=== PATIENT | female | born 1995 | race Caucasian/White ===

== ENCOUNTER 2018-12-24 07:30 | Inpatient (IN) | payer BC ==
--- NOTE | 2018-12-24 12:57 | HP ---
DATE OF ADMISSION: 12/24/2018 ADMISSION DIAGNOSES: 1. 38 and 6/7 weeks' gestational age. 2. History of previous section x2. 3. Active labor with desire for repeat section. HISTORY OF PRESENT ILLNESS: The patient is a 23-year-old 4, para 2-0-1-2 white female who has an ILDEFONSO of 01/01/2019 placing her at 38 and 6/7 weeks' gestational age. She was seen in [facility] [place], [place], for visit at which time she was noted to be in labor, octaviano every 4 to 5 minutes. They were moderate in intensity. The patient is admitted to the hospital for repeat section which was scheduled for after 39 weeks previously. The procedure, risks, benefits, alternatives of care are discussed in detail with the patient. She appears to understand and wishes to proceed. She has signed a consent and orders have been given to her. OBSTETRIC AND GYNECOLOGIC HISTORY: 4, para 2-0-1-2. The patient's ILDEFONSO is 01/01/2019 as based upon first ultrasound done at 12 and 6/7 weeks and supported by a second ultrasound done on 08/22/2018. Her previous obstetric history includes a the followin. The patient had a delivery on 06/23/2013 at 39 weeks' gestational age after 24 hours of labor, 7 pounds 8 ounces, primary section in [place], [place], done for failure to progress and abnormal position. Child's name is Chau. 2. Second delivered on 03/18/2015 at 6 weeks' gestation, miscarriage. 3. Delivery 05/07/2017 at 39 weeks' gestational age, 8 pounds 2 ounces, [place], [place], child's name is Jose Roberto. The patient had menarche at age 14. Cycles every 28 days. Last menstrual period was fairly certain. Not using any control at time of conception. OBSTETRIC AND GYNECOLOGIC COURSE: The patient's first visit was on 06/25/2018 at 12 weeks' gestation. She was seen on a regular basis. Her weight gain was from 161.8 to 179.8 pounds for an 18 pounds gain. Her fundal height growth was appropriate. Baby is in a vertex presentation. Her vital signs remained stable throughout the course. The patient had an abnormal glucose tolerance test 1 hour, but a normal 3-hour glucose tolerance test. She has a complicated left ovarian cyst seen at her 20-week ultrasound. She has had a history of bacterial vaginosis which was treated. She is desiring repeat section. She plans to breastfeed. Her Tdap immunization was done on 10/29/2018. LABORATORY TESTING IN : Shows blood to be O positive with a negative antibody screen. Her first hemoglobin was 13.1 g/dL. Platelets were 267,000. She is rubella immune. RPR is nonreactive. Urinalysis showed Gardnerella vaginalis, which was treated. Her hepatitis B surface antigen and HIV assays were both negative as were her chlamydia and gonorrhea tests. Her second trimester hemoglobin was normal. Her diabetes screen was 131, which was mildly elevated. Her 3-hour glucose was as follows: Fasting blood sugar 95. One-hour glucose 168. 2-hour glucose 110. 3-hour glucose was 63. Group B strep screen done on 12/03/2018 was negative. ALLERGIES: None other than nickel which causes itching and rash. CURRENT MEDICATIONS: 1. Valacyclovir 500 mg 2 tablets at the onset of oral herpes lesions, repeat every 12 hours. 2. vitamins 1 daily. PAST MEDICAL HISTORY: 1. Miscarriage x1. 2. Right oophorectomy for ovarian cyst. PAST SURGICAL HISTORY: 1. x2 as above. 2. Right oophorectomy secondary to cyst. FAMILY HISTORY: Negative for bleeding, blood clotting, anesthesia or asthma disorders. No disorders noted. SOCIAL HISTORY: The patient is . is Vasyl. She lives in [place], [place]. She does not use any significant amounts of alcohol, drugs, or tobacco. She is a [id number] mom. REVIEW OF SYSTEMS: HEAD, EARS, EYES, NOSE, AND THROAT: Negative. LUNGS: Without shortness of breath or infectious symptoms. CARDIOVASCULAR: Without chest pain, exercise intolerance. BREASTS: Show only changes associated with . GASTROINTESTINAL: Unremarkable. GENITOURINARY: Changes associated with with fundal height increased due to . MUSCULOSKELETAL/EXTREMITIES: Mild edema noted on occasion. NEUROLOGICAL: Negative. PHYSICAL EXAMINATION: GENERAL: The patient is well-developed, well-nourished, pleasant female in minimal distress secondary to early labor. Reporting contractions every 5 minutes or so. VITAL SIGNS: Her weight is 179.8 pounds with first weight of 161.8 pounds. Blood pressure is 129/90. Her heart rate is 145. SKIN: Warm, dry, without lesions. HEENT, NECK AND BACK: Within normal limits. LUNGS: Clear with good breath sounds in all lung root. CARDIOVASCULAR: Shows regular rate and rhythm without murmurs. BREASTS: Deferred at this time having been done at first visit found to be normal. ABDOMEN: Consistent with term with fundal height of 38.5 cm. Baby in vertex presentation. GENITAL: Shows cervix to be 1 cm, +1, 20% effaced, soft, posterior position, and -3 station. Baby in vertex presentation. EXTREMITIES: Show trace edema. Otherwise unremarkable. ASSESSMENT: 1. 38 and 6/7 week intrauterine , history of previous x2 with desire for repeat section, now in early active labor. The patient is admitted for an unscheduled repeat section. The procedure, risks, benefits, alternatives of care including allowing natural labor to proceed all discussed with the patient. She appears to understand and would like to proceed with repeat section. 2. Risk factors for the include history of previous x2. Also history of right oophorectomy. Also has a left ovarian cyst diagnosed on her 20-week ultrasound. PLAN: 1. Admit for repeat section. The procedure, risks, benefits were discussed with the patient. She has signed a consent. 2. Deep venous thrombosis prophylaxis with SCDs. 3. Infection prophylaxis with Ancef 2 g IV preop. 4. The patient has been given a Tdap immunization. She is Rh positive. 5. The patient plans to breastfeed. 6. Routine antibiotic prophylaxis. The patient is group B strep negative. MMODAL /[id number]
[2018-12-24] MEDS ORDERED: Lactated Ringers 1,000 ML ONE (13:09)
[2018-12-24] MEDS ORDERED: Ondansetron 4 MG/2 ML SDV IVPUSH PRN ×2 (13:11→15:27)
[2018-12-24] MEDS ORDERED: Sodium Chloride 0.9% 10 ML Syringe FLUSH PRN (13:11)
[2018-12-24] MEDS ORDERED: Nalbuphine 10 MG/1 ML Vial IVPUSH PRN (13:11)
[2018-12-24] MEDS ORDERED: Metoclopramide 10 MG/2 ML SDV IVPUSH ONE (13:11)
[2018-12-24] MEDS ORDERED: ceFAZolin 2 GM in Premix Bag 1 BAG IV ONE (13:11)
[2018-12-24] MEDS ORDERED: Citric Acid/Sodium Citrate Solution 30 ML Cup PO ONE (13:11)
[2018-12-24] MEDS ORDERED: Lactated Ringers 1,000 ML IV SCH (13:15)
[2018-12-24] MEDS ORDERED: Oxytocin/Lactated Ringers 10 UNIT/1,000 ML BAG IV SCH (13:15)
[2018-12-24] MEDS ORDERED: Oxytocin 10 Units/1 ML SDV ONE (14:26)
[2018-12-24] MEDS ORDERED: Morphine PF 10 MG/10 ML SDV ONE (14:26)
[2018-12-24] MEDS ORDERED: Ondansetron 4 MG/2 ML SDV ONE (14:26)
[2018-12-24] MEDS ORDERED: ceFAZolin 1 GM Vial ONE (14:26)
[2018-12-24] MEDS ORDERED: Ketorolac 30 MG/ML SDV ONE (14:26)
[2018-12-24] MEDS ORDERED: Lactated Ringers 2,000 ML ONE (14:26)
--- NOTE | 2018-12-24 14:51 | PCM.PREANE ---
Preanesthetic Assessment - Procedure Proposed Procedure: repeat c sectio - Anesthesia/Transfusion/Family Hx Anesthesia History: Prior Anesthesia Without Reaction Family History of Anesthesia Reaction: No Transfusion History: No Prior Transfusion(s) - Review of Systems General: No Symptoms Pulmonary: No Symptoms Cardiovascular: No Symptoms Gastrointestinal: No Symptoms Neurological: No Symptoms Other: Reports: None - Physical Assessment NPO Status Date: 12/24/18 NPO Status Time: 11:45 (oj- small cup) Vital Signs: Last Vital Signs Temp 97.9 F 12/24/18 13:50 Pulse 96 12/24/18 13:50 Resp 14 12/24/18 13:50 BP 133/91 H 12/24/18 13:50 Pulse Ox 100 12/24/18 13:50 Height: 5 ft 4 in Weight: 81.193 kg ASA Class: 2 Mental Status: Alert & Oriented x3 Airway Class: Mallampati = 1 Dentition: Reports: Normal Dentition Thyro-Mental Finger Breadths: 3 Mouth Opening Finger Breadths: 3 ROM/Head Extension: Full Lungs: Clear to Auscultation, Normal Respiratory Effort Cardiovascular: Regular Rate, Regular Rhythm - Blood Blood Available: No - Acknowledgements Anesthesia Type Planned: Spinal Pt an Appropriate Candidate for the Planned Anesthesia: Yes Alternatives and Risks of Anesthesia Discussed w Pt/Guardian: Yes Pt/Guardian Understands and Agrees with Anesthesia Plan: Yes PreAnesthesia Questionnaire Cardiovascular History: Reports: None Respiratory History: Reports: None Gastrointestinal History: Reports: None : 4 (38 6 weeks) Para: 2 - Past Surgical History Female Surgical History: Reports: Section, Other (See Below) (ovary removed) - History Comment History Comment: q day - SUBSTANCE USE Smoking Status *Q: Never Smoker Tobacco Use Within Last Twelve Months: No Second Hand Smoke Exposure: No Days Per Week of Alcohol Use: 0 Recreational Drug Use History: No - CURRENT (IN HOUSE) MEDS Current Meds: Current Medications Lactated Ringer's (Ringers, Lactated) 1,000 mls @ 125 mls/hr IV ASDIRECTED [facility] Last Admin: 12/24/18 14:17 Dose: 125 mls/hr Oxytocin/Lactated Ringer's (Pitocin In Lr 10 Units/1,000 Ml) 10 unit in 1,000 mls @ 100 mls/hr IV ASDIRECTED [facility] Nalbuphine HCl (Nubain) 10 mg IVPUSH Q2H PRN PRN Reason: Pain Ondansetron HCl (Zofran) 4 mg IVPUSH Q4H PRN PRN Reason: Nausea/Vomiting Sodium Chloride (Saline Flush) 10 ml FLUSH ASDIRECTED PRN PRN Reason: Keep Vein Open Discontinued Medications Cefazolin Sodium (Ancef) Confirm Administered Dose 2 gm .ROUTE .STK-MED ONE Stop: 12/24/18 14:27 Citric Acid/Sodium Citrate (Bicitra Solution) 30 ml PO ONETIME ONE Stop: 12/24/18 13:12 Last Admin: 12/24/18 14:18 Dose: 30 ml Lactated Ringer's (Ringers, Lactated) Confirm Administered Dose 1,000 mls @ as directed .ROUTE .STK-MED ONE Stop: 12/24/18 13:10 Cefazolin Sodium/Dextrose 2 gm (/ Premix) 50 mls @ 100 mls/hr IV ONETIME ONE Stop: 12/24/18 13:40 Lactated Ringer's (Ringers, Lactated) Confirm Administered Dose 2,000 mls @ as directed .ROUTE .STK-MED ONE Stop: 12/24/18 14:27 Ketorolac Tromethamine (Toradol) Confirm Administered Dose 30 mg .ROUTE .STK- MED ONE Stop: 12/24/18 14:27 Metoclopramide HCl (Reglan) 10 mg IVPUSH ONETIME ONE Stop: 12/24/18 13:12 Last Admin: 12/24/18 14:17 Dose: 10 mg Morphine Sulfate (Duramorph Pf) Confirm Administered Dose 10 mg .ROUTE .STK-MED ONE Stop: 12/24/18 14:27 Ondansetron HCl (Zofran) Confirm Administered Dose 4 mg .ROUTE .STK-MED ONE Stop: 12/24/18 14:27 Oxytocin (Pitocin) Confirm Administered Dose 10 unit .ROUTE .STK-MED ONE Stop: 12/24/18 14:27
[2018-12-24] MEDS ORDERED: Bupivacaine 0.5% 30 ML SDV ONE (15:14)
[2018-12-24] MEDS ORDERED: fentaNYL 100 MCG/2 ML SDV IVPUSH PRN (15:27)
[2018-12-24] MEDS ORDERED: diphenhydrAMINE 50 MG/ML SDV IVPUSH PRN ×2 (15:27→18:05)
[2018-12-24] MEDS ORDERED: Phenylephrine/Normal Saline 100 MCG/ML 10 ML Syringe ONE (15:55)
--- NOTE | 2018-12-24 16:34 | PCM.POSTAN ---
POST ANESTHESIA ASSESSMENT - MENTAL STATUS Mental Status: Alert, Oriented - VITAL SIGNS Vital Signs: Last Vital Signs Temp 97.9 F 12/24/18 16:17 Pulse 99 12/24/18 15:01 Resp 14 12/24/18 16:25 BP 108/57 L 12/24/18 16:17 Pulse Ox 98 12/24/18 16:25 - RESPIRATORY Respiratory Status: Respiratory Rate WNL, Airway Patent, O2 Saturation Stable, Supplemental Oxygen - CARDIOVASCULAR CV Status: Pulse Rate WNL, Blood Pressure Stable - GASTROINTESTINAL GI Status: No Symptoms - PAIN Pain Score: 0 - POST OP HYDRATION Hydration Status: Adequate & Stable
--- NOTE | 2018-12-24 17:24 | PCM.SN ---
- Free Text/Narrative Note: - General Post-Op/Procedure Note Date of Surgery/Procedure: 12/24/18 Operative Procedure(s): Repeat lower uterine segment transverse section through Pfannenstiel skin incision Findings: Uterus was gravid with full-term infant in a vertex presentation. Amniotic fluid was clear. Lower uterine segment was very thin at no more than 2 mm. Right ovary is surgically absent. Left ovary was enlarged to approximately 8 cm in largest dimension by 4 cm x 3 cm. It had smooth surface and appeared benign in nature. Baby weighed 7 lbs. 11 oz. (3480 g) and was born at 1536 hrs. on 12/24/2018. scores were 8 and 9. Pre Op Diagnosis: 38-6/7 week intrauterine , active labor, history of previous section 2 with desire for repeat section Post-Op Diagnosis: Same with delivery of female weighing 7 lbs. 11 oz. ( 3480 g) born at 1536 hrs. on 12/24/2018. scores were 8 and 9. Anesthesia Technique: Spinal Other Anesthesia Type: Arcane 0.5%20 mL total Primary Surgeon: Waldo Ham Secondary Surgeon: Kelvin Llanes Anesthesia Provider: Elham Gill Cement Crusher Operator: Gareth March Reason Cement Crusher Operator Was Necessary: Assistance, retraction, patient safety, quality of care. Fluid Replacement, Intraop: 3,200 Output, Urine Amount: 100 EBL in mLs: 600 Drain/Tube Comments:: Indwelling bladder catheter Condition: Good Free Text/Narrative:: Surgery duration: 38 minutes Procedure: The patient is appropriately consented. Patient was transferred to the room and placed in a sitting position. Spinal anesthesia was administered. After confirmation of adequate anesthesia patient was placed in a supine position with a wedge under her right side to facilitate left lateral positioning. The patient was prepped and draped in usual fashion after Nolasco catheter was already placed . The anesthetic was checked and found to be adequate. 20 mL of Marcaine 0.5% was injected locally in the Pfannenstiel incision site. The Pfannenstiel skin incision was then made and carried down through skin, subcutaneous and fascial layers. The fascia was then undermined superiorly and inferiorly to allow for adequate operating room. The recti muscles midline and preperitoneal fat was bluntly dissected. Peritoneal cavity was entered longitudinally. The vesicouterine peritoneum was then incised transversely and bladder flap was developed. Myometrium was incised transversely to the level of the amniotic sac. Is found very thin at no more than 2 mm of thickness. This incision was extended bilaterally in a blunt fashion. The amniotic sac was then ruptured resulting in clear amniotic fluid. A hand is placed in the low uterine segment and the baby's head was brought forth through the incision. The baby was completely delivered using fundal pressure in a routine fashion. The nose and mouth were bulb suctioned. Baby's cord was clamped x2 cut and baby was handed off to attending boat designer Dr cleveland. Placenta was expressed after cord blood was obtained. Uterus was then exteriorized to allow for easier closure. The cervix was assessed and found to be dilated adequately to allow egress of blood. The uterus was closed in 2 layers. The first layer a running locked suture of 0 Monocryl, the second layer a running locked vertical mattress suture of 0 Monocryl. Hemostasis confirmed at this time. The left ovary was found to be enlarged as described above. Because of its benign appearance and patient having only the left ovary remaining decision was made to monitor and reevaluate after previous use of with ultrasound. Sponge instrument needle counts are correct. The uterus was returned to the abdominal cavity and lateral gutters were cleared of blood. Once again sponge needle counts are correct. The anterior abdominal wall was closed with a #1 PDS suture from angle to angle. The subcutaneous area was found to be free of any bleeders. interrupted sutures of 3-0 Monocryl were used to reapproximate the subcutaneous layer.Skin was closed with a running subcuticular stitch of 3-0 Monocryl in a vertical mattress suture fashion using a Jose needle. Prineo mesh/glue was then applied to further approximate the incision. It should be noted that patient received 2 g of Ancef preoperatively for infection prophylaxis and had Pitocin infused after delivery of the placenta to facilitate uterine contraction. She also had sequential compression stockings in place for DVT prophylaxis. Patient was discharged from the operating room in satisfactory condition.
[2018-12-24] MEDS ORDERED: Ondansetron 4 MG/2 ML SDV IV PRN (18:05)
[2018-12-24] MEDS ORDERED: Acetaminophen/oxyCODONE 325-5 MG Tab PO PRN (18:05)
[2018-12-24] MEDS ORDERED: Ibuprofen 800 MG Tab PO SCH (18:05)
[2018-12-24] MEDS ORDERED: Naloxone 0.4 MG/ML SDV IVPUSH PRN (18:05)
[2018-12-24] MEDS ORDERED: Dextrose 5%-Lactated Ringers 1,000 ML IV SCH (18:05)
[2018-12-24] MEDS ORDERED: Docusate Sodium 100 MG Cap PO PRN (18:05)
[2018-12-24] MEDS ORDERED: ePHEDrine 50 MG/ML SDV IVPUSH PRN (18:05)
[2018-12-24] MEDS: Simethicone 80 MG Tab.Chew PO SCH (20:31)
[2018-12-24] MEDS: Ibuprofen 800 MG Tab PO SCH (21:01)
[2018-12-25] MEDS: Ibuprofen 800 MG Tab PO SCH ×3 (06:06→21:56)
[2018-12-25] MEDS: Simethicone 80 MG Tab.Chew PO SCH ×4 (10:19→21:56)
[2018-12-25] MEDS: Prenatal Multivitamin with Calcium/Folic Acid/Iron Tab PO SCH (10:20)
[2018-12-25] MEDS: Acetaminophen 325 MG Tab PO PRN ×2 (12:00→19:38)
[2018-12-25] MEDS ORDERED: Acetaminophen/oxyCODONE 325-5 MG Tab PO PRN (12:37)
[2018-12-25] MEDS: valACYclovir 1,000 MG Tab PO SCH (17:09)
[2018-12-26] MEDS: Ibuprofen 800 MG Tab PO SCH (05:55)
--- NOTE | 2018-12-26 06:02 | PCM.DCSUM1 ---
Discharge Summary - Hospital Course Free Text/Narrative:: Pippa is a 23-year-old 3 para 3003 white female who was scheduled for repeat section on 12/26/2018 but went into labor on 12/24/2018 and underwent repeat section at that time. She had a lower uterine segment transverse section through Pfannenstiel skin incision under a spinal anesthesia. She delivered a viable, 7 lbs. 11 oz. (3480 g) female at 1536 hrs. on 12/24/2018. scores were 8 and 9. findings at the time of : Uterus was gravid with full-term in a vertex presentation. Amniotic fluid was clear. Lower uterine segment was very thin at no more than 2 mm. Right ovary is surgically absent. Left ovary was enlarged to approximately 8 cm in largest dimension by 4 cm x 3 cm. It had smooth surface and appeared benign in nature. patient has done very well. She is nursing without problems. Incision appears to be healing well. It is intact, dry.Prineo mesh is in place. This will be removed at 2 weeks . Desiring discharge home. She has minimal lochia. She is voiding well. She is ambulating without concerns. Condition: Good Diagnosis: Stroke: No - Discharge Data Discharge Date: 12/26/18 Discharge Disposition: Home, Self-Care 01 Condition: Good - Referral to Home Health Primary Care Physician: Chen Ayala [employer] - Patient Instructions Diet: Regular Diet as Tolerated (Nursing diet with increase in calcium and calories as recommended) Activity: As Tolerated (No intercourse or tampons until seen back. No lifting greater than 15 pounds or driving a car 5-7 days.) Driving: Do Not Drive Showering/Bathing: May Shower Wound/Incision Care: Keep Operative Site/Wound Site Clean and Dry Notify Provider of: Fever, Increased Pain, Swelling and Redness, Nausea and/or Vomiting - Discharge Plan Home Medications: Home Meds Acetaminophen/oxyCODONE [Percocet 325-5 MG] 1 tab PO Q4H PRN tablet 12/26/18 [ Rx] Ibuprofen [Motrin] 800 mg PO Q8H tablet 12/26/18 [Rx] Vit with Ca/FA/Iron [ Plus Iron] 1 each PO DAILY tablet [Rx] valACYclovir [Valtrex] 1,000 mg PO DAILY tablet 12/26/18 [Rx] - Discharge Summary/Plan Comment DC Time >30 min.: No Discharge Summary/Plan Comment: Discharge instructions: 1. Discharge home 2. Diet, activity and follow-up discussed with patient. Recommend nursing diet with increased calories and calcium. 3. Precautions given concern increased pain, bleeding, temperature, signs/ symptoms of DVT/PE. 4. Medications per home medication was printed, discussed with and given to the patient. 5. Return to clinic-Dr. Ham[facility] in 2 weeks. Diagnosis: Term -admitted in active labor?history of 2 with desire for repeat section -delivered via repeat section Condition: Good - Patient Data Vitals - Most Recent: Last Vital Signs Temp 36.7 C 12/26/18 03:23 Pulse 74 12/26/18 03:23 Resp 15 12/26/18 03:23 BP 97/73 12/26/18 03:23 Pulse Ox 96 12/26/18 03:23 Weight - Most Recent: 81.193 kg I&O - Last 24 hours: Intake & Output 12/25/18 12/25/18 12/26/18 14:59 22:59 06:59 Intake Total 240 320 Output Total 2000 Balance -1760 320 Lab Results - Last 24 hrs: Laboratory Results - last 24 hr 12/25/18 Range/Units 05:44 WBC 9.74 (3.98-10.04) K/mm3 RBC 3.74 L (3.98-5.22) M/mm3 Hgb 11.0 L (11.2-15.7) gm/dl Hct 33.3 L (34.1-44.9) % MCV 89.0 (79.4-94.8) fl MCH 29.4 (25.6-32.2) pg MCHC 33.0 (32.2-35.5) g/dl RDW Std Deviation 46.0 (36.4-46.3) fL Plt Count 166 L (182-369) K/mm3 MPV 10.1 (9.4-12.3) fl Neut % (Auto) 72.6 H (34.0-71.1) % Lymph % (Auto) 19.6 (19.3-51.7) % Wayne % (Auto) 6.8 (4.7-12.5) % Eos % (Auto) 0.5 L (0.7-5.8) Baso % (Auto) 0.1 (0.1-1.2) % Neut # (Auto) 7.07 H (1.56-6.13) K/mm3 Lymph # (Auto) 1.91 (1.18-3.74) K/mm3 Wayne # (Auto) 0.66 H (0.24-0.36) K/mm3 Eos # (Auto) 0.05 (0.04-0.36) K/mm3 Baso # (Auto) 0.01 (0.01-0.08) K/mm3 Med Orders - Current: Current Medications Acetaminophen (Tylenol) 650 mg PO Q6H PRN PRN Reason: Pain Last Admin: 12/25/18 19:38 Dose: 650 mg Diphenhydramine HCl (Benadryl) 25 mg IVPUSH Q6H PRN PRN Reason: Itching or Nausea Docusate Sodium (Colace) 100 mg PO Q12H PRN PRN Reason: Constipation Last Admin: 12/25/18 21:56 Dose: 100 mg Ephedrine Sulfate (Ephedrine Sulfate) 5 mg IVPUSH SEECOMMENT PRN PRN Reason: Other Ibuprofen (Motrin) 800 mg PO Q8H [facility] Last Admin: 12/26/18 05:55 Dose: 800 mg Naloxone HCl (Narcan) 0.1 mg IVPUSH SEECOMMENT PRN PRN Reason: Respiratory Depression Ondansetron HCl (Zofran) 4 mg IV Q4H PRN PRN Reason: Nausea/Vomiting Oxycodone/Acetaminophen (Percocet 325-5 Mg) 2 tab PO Q4H PRN PRN Reason: Pain (moderate 4-6) Last Admin: 12/25/18 23:27 Dose: 2 tab Oxycodone/Acetaminophen (Percocet 325-5 Mg) 1 tab PO Q4H PRN PRN Reason: Pain Last Admin: 12/25/18 12:43 Dose: 1 tab Prenat Multivit/[place]/Iron/Folic Ac ( Plus Iron) 1 each PO DAILY [facility] Last Admin: 12/25/18 10:20 Dose: 1 each Simethicone (Simethicone) 160 mg PO QID [facility] Last Admin: 12/25/18 21:56 Dose: 160 mg Valacyclovir HCl (Valtrex) 1,000 mg PO DAILY [facility] Last Admin: 12/25/18 17:09 Dose: 1,000 mg Discontinued Medications Bupivacaine HCl (Marcaine 0.5%) Confirm Administered Dose 30 ml .ROUTE .K-MED ONE Stop: 12/24/18 15:15 Last Admin: 12/24/18 15:33 Dose: 20 ml Cefazolin Sodium (Ancef) Confirm Administered Dose 2 gm .ROUTE .[facility] ONE Stop: 12/24/18 14:27 Citric Acid/Sodium Citrate (Bicitra Solution) 30 ml PO ONETIME ONE Stop: 12/24/18 13:12 Last Admin: 12/24/18 14:18 Dose: 30 ml Diphenhydramine HCl (Benadryl) 25 mg IVPUSH Q6H PRN PRN Reason: Pruritis Stop: 12/24/18 18:00 Fentanyl (Sublimaze) 50 mcg IVPUSH Q5M PRN PRN Reason: Pain Stop: 12/24/18 18:00 Lactated Ringer's (Ringers, Lactated) Confirm Administered Dose 1,000 mls @ as directed .ROUTE .[facility] ONE Stop: 12/24/18 13:10 Last Admin: 12/24/18 20:13 Dose: Not Given Cefazolin Sodium/Dextrose 2 gm (/ Premix) 50 mls @ 100 mls/hr IV ONETIME ONE Stop: 12/24/18 13:40 Last Admin: 12/24/18 20:13 Dose: Not Given Lactated Ringer's (Ringers, Lactated) 1,000 mls [facility] Last Admin: 12/24/18 14:17 Dose: 125 mls/hr Oxytocin/Lactated Ringer's (Pitocin In Lr 10 Units/1,000 Ml) 10 unit in 1,000 mls @ 100 mls/hr IV ASDIRECTED [facility] Lactated Ringer's (Ringers, Lactated) Confirm Administered Dose 2,000 mls @ as directed .ROUTE .K-MED ONE Stop: 12/24/18 14:27 Dextrose/Lactated Ringer's (Dextrose 5%-Lactated Ringers) 1,000 mls @ 125 mls/ hr IV ASDIRECTED [facility]ULY Stop: 12/25/18 02:04 Last Admin: 12/24/18 20:31 Dose: 125 mls/hr Ibuprofen (Motrin) 800 mg PO Q8H [facility] Last Admin: 12/24/18 18:46 Dose: Not Given Ketorolac Tromethamine (Toradol) Confirm Administered Dose 30 mg .ROUTE .STK- MED ONE Stop: 12/24/18 14:27 Metoclopramide HCl (Reglan) 10 mg IVPUSH ONETIME ONE Stop: 12/24/18 13:12 Last Admin: 12/24/18 14:17 Dose: 10 mg Morphine Sulfate (Duramorph Pf) Confirm Administered Dose 10 mg .ROUTE .STK-MED ONE Stop: 12/24/18 14:27 Nalbuphine HCl (Nubain) 10 mg IVPUSH Q2H PRN PRN Reason: Pain Ondansetron HCl (Zofran) 4 mg IVPUSH Q4H PRN PRN Reason: Nausea/Vomiting Ondansetron HCl (Zofran) Confirm Administered Dose 4 mg .ROUTE .STK-MED ONE Stop: 12/24/18 14:27 Ondansetron HCl (Zofran) 4 mg IVPUSH ONETIME PRN PRN Reason: Nausea/Vomiting Oxytocin (Pitocin) Confirm Administered Dose 10 unit .ROUTE .STK-MED ONE Stop: 12/24/18 14:27 Phenylephrine HCl (Phenylephrine In Ns 100 Mcg/Ml) Confirm Administered Dose 1 mg .ROUTE .STK-MED ONE Stop: 12/24/18 15:56 Sodium Chloride (Saline Flush) 10 ml FLUSH ASDIRECTED PRN PRN Reason: Keep Vein Open
[2018-12-26] MEDS: Simethicone 80 MG Tab.Chew PO SCH (09:28)
[2018-12-26] MEDS: Acetaminophen 325 MG Tab PO PRN (09:28)
[2018-12-26] MEDS: Prenatal Multivitamin with Calcium/Folic Acid/Iron Tab PO SCH (09:29)
[2018-12-26] MEDS: valACYclovir 1,000 MG Tab PO SCH (11:10)
== END 2018-12-26 10:50 | disposition home or self-care (01) | DRG 540 ==
LOC: JD.OB 13:34
PROVIDERS: ADMIT Obstetrics & Gynecology; ATTEND Obstetrics & Gynecology
PROC: 10D00Z1 Extraction of Products of Conception, Low, Open Approach (ICD-10-PCS; principal; 2018-12-24)
DX: O34.211 Maternal care for low transverse scar from previous cesarean delivery (principal); Z37.0 Single live birth; Z3A.39 39 weeks gestation of pregnancy
CPT/HCPCS: 01961; 36415; 59025; 85025; 86592; 86850; 86900; 86901; 94762; A9270-GY; J0690; J1885; J2270; J2370; J2405; J2590; J2765; J3490; J7042; J7120

== ENCOUNTER 2019-03-17 09:16 | Day surgery (SDC) | payer BC ==
[~2019-03-17 09:16] MED LIST: Lidocaine 1%/Sod Bicarbonate in NS 8.4% 1 ML Syringe IDERM PRN; Sodium Chloride 0.9% 10 ML Syringe FLUSH PRN
[2019-03-17] MEDS ORDERED: Propofol 200 MG/20 ML SDV ONE (09:28)
[2019-03-17] MEDS ORDERED: Midazolam 1 MG/ML 2 ML SDV ONE (09:28)
[2019-03-17] MEDS ORDERED: Ondansetron 4 MG/2 ML SDV ONE (09:28)
[2019-03-17] MEDS ORDERED: fentaNYL 250 MCG/5 ML SDV ONE (09:28)
[2019-03-17] MEDS ORDERED: Ketorolac 30 MG/ML SDV ONE (09:29)
[2019-03-17] MEDS ORDERED: Dexamethasone 4 MG/ML 5 ML MDV ONE (09:29)
[2019-03-17] MEDS ORDERED: Rocuronium 100 MG/10 ML MDV ONE (09:29)
[2019-03-17] MEDS ORDERED: Lidocaine 1% 4 ML ONE (09:29)
[2019-03-17] MEDS ORDERED: ceFAZolin 1 GM Vial ONE (09:35)
[2019-03-17] MEDS: Lactated Ringers 1,000 ML IV SCH ×2 (09:47→13:07)
--- NOTE | 2019-03-17 10:22 | PCM.PREANE ---
Preanesthetic Assessment - Procedure Proposed Procedure: laparoscopy - Anesthesia/Transfusion/Family Hx Anesthesia History: Prior Anesthesia Without Reaction (nausea) Family History of Anesthesia Reaction: No Transfusion History: No Prior Transfusion(s) - Review of Systems General: No Symptoms Pulmonary: No Symptoms Cardiovascular: No Symptoms Gastrointestinal: No Symptoms Neurological: No Symptoms Other: Reports: None - Physical Assessment NPO Status Date: 03/16/19 NPO Status Time: 19:00 Vital Signs: Last Vital Signs Temp 37.1 C 03/17/19 09:30 Pulse 69 03/17/19 09:30 Resp 16 03/17/19 09:30 BP 99/62 03/17/19 09:30 Pulse Ox 100 03/17/19 09:30 Height: 1.63 m Weight: 70.76 kg ASA Class: 1 Mental Status: Alert & Oriented x3 Airway Class: Mallampati = 1 Dentition: Reports: Normal Dentition Thyro-Mental Finger Breadths: 3 Mouth Opening Finger Breadths: 3 ROM/Head Extension: Full Lungs: Clear to Auscultation, Normal Respiratory Effort Cardiovascular: Regular Rate, Regular Rhythm - Lab Values: Laboratory Last Values WBC 7.28 K/mm3 (3.98-10.04) 03/17/19 09:46 RBC 4.87 M/mm3 (3.98-5.22) 03/17/19 09:46 Hgb 14.1 gm/dl (11.2-15.7) D 03/17/19 09:46 Hct 41.2 % (34.1-44.9) 03/17/19 09:46 MCV 84.6 fl (79.4-94.8) D 03/17/19 09:46 MCH 29.0 pg (25.6-32.2) 03/17/19 09:46 MCHC 34.2 g/dl (32.2-35.5) 03/17/19 09:46 RDW Std Deviation 39.1 fL (36.4-46.3) 03/17/19 09:46 Plt Count 233 K/mm3 (182-369) 03/17/19 09:46 MPV 9.7 fl (9.4-12.3) 03/17/19 09:46 Neut % (Auto) 63.1 % (34.0-71.1) 03/17/19 09:46 Lymph % (Auto) 30.1 % (19.3-51.7) 03/17/19 09:46 [place] % (Auto) 5.6 % (4.7-12.5) 03/17/19 09:46 Eos % (Auto) 1.0 (0.7-5.8) 03/17/19 09:46 Baso % (Auto) 0.1 % (0.1-1.2) 03/17/19 09:46 Neut # (Auto) 4.59 K/mm3 (1.56-6.13) 03/17/19 09:46 Lymph # (Auto) 2.19 K/mm3 (1.18-3.74) 03/17/19 09:46 [place] # (Auto) 0.41 K/mm3 (0.24-0.36) H 03/17/19 09:46 Eos # (Auto) 0.07 K/mm3 (0.04-0.36) 03/17/19 09:46 Baso # (Auto) 0.01 K/mm3 (0.01-0.08) 03/17/19 09:46 Urine Color Yellow (Yellow) 03/17/19 09:26 Urine Appearance Clear (Clear) 03/17/19 09:26 Urine pH 6.0 (5.0-8.0) 03/17/19 09:26 Ur Specific [place] > or = 1.030 (1.005-1.030) 03/17/19 09:26 Urine Protein Negative (Negative) 03/17/19 09:26 Urine Glucose (UA) Negative (Negative) 03/17/19 09:26 Urine Ketones Negative (Negative) 03/17/19 09:26 Urine Occult Blood 1+ (Negative) H 03/17/19 09:26 Urine Nitrite Negative (Negative) 03/17/19 09:26 Urine Bilirubin Negative (Negative) 03/17/19 09:26 Urine Urobilinogen 0.2 (0.2-1.0) 03/17/19 09:26 Ur Leukocyte Esterase Negative (Negative) 03/17/19 09:26 Urine RBC 5-10 /hpf (0-5) H 03/17/19 09:26 Urine WBC 0-5 /hpf (0-5) 03/17/19 09:26 Ur Squamous Epith Cells 0-5 /hpf (0-5) 03/17/19 09:26 Amorphous Sediment Rare /hpf (NOT SEEN) H 03/17/19 09:26 Urine Bacteria Few /hpf (FEW) 03/17/19 09:26 Urine Mucus Rare /hpf (FEW) 03/17/19 09:26 Urine HCG, Qual Negative (NEGATIVE) 03/17/19 09:26 - Allergies Allergies/Adverse Reactions: Allergies Allergy/AdvReac Type Severity Reaction Status Date / Time nickel Allergy Rash Verified 03/17/19 10:04 - Anesthesia Plan Pre-Op Medication Ordered: None - Acknowledgements Anesthesia Type Planned: General Anesthesia Pt an Appropriate Candidate for the Planned Anesthesia: Yes Alternatives and Risks of Anesthesia Discussed w Pt/Guardian: Yes Pt/Guardian Understands and Agrees with Anesthesia Plan: Yes PreAnesthesia Questionnaire HEENT History: Reports: None Cardiovascular History: Reports: None Respiratory History: Reports: None Gastrointestinal History: Reports: None Genitourinary History: Reports: Other (See Below) 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) Other OB/BYN History: cysts on ovaries, PELVIC PAIN, TERATOMA, UTERINE FIBROID, BACTERIAL VAGINOSIS Musculoskeletal History: Reports: Other (See Below) Other Musculoskeletal History: CALF PAIN Neurological History: Reports: Migraines Psychiatric History: Reports: Depression Endocrine/Metabolic History: Reports: None Hematologic History: Reports: None Immunologic History: Reports: None Oncologic (Cancer) History: Reports: None Dermatologic History: Reports: Venous Stasis Dermatitis, Other (See Below) Other Dermatologic History: COLD SORE - Infectious Disease History Infectious Disease History: Reports: Other (See Below) Other Infectious Disease History: cold sore - Past Surgical History Head Surgeries/Procedures: Reports: None HEENT Surgical History: Reports: None Cardiovascular Surgical History: Reports: None Respiratory Surgical History: Reports: None Female Surgical History: Reports: Section, Other (See Below) Endocrine Surgical History: Reports: None Neurological Surgical History: Reports: None Musculoskeletal Surgical History: Reports: None Oncologic Surgical History: Reports: None Dermatological Surgical History: Reports: None - History Comment History Comment: q day - SUBSTANCE USE Smoking Status *Q: Never Smoker Tobacco Use Within Last Twelve Months: No Second Hand Smoke Exposure: No Days Per Week of Alcohol Use: 1 Number of Drinks Per Day: 1 Total Drinks Per Week: 1 Recreational Drug Use History: No - HOME MEDS Home Medications: Home Meds . [No Known Home Meds] 03/16/19 [History] - CURRENT (IN HOUSE) MEDS Current Meds: Current Medications Lactated Ringer's (Ringers, Lactated) 1,000 mls @ 125 mls/hr IV ASDIRECTED PAULY Stop: 03/17/19 23:00 Last Admin: 03/17/19 09:47 Dose: 125 mls/hr Lidocaine/Sodium Bicarbonate (Buffered Lidocaine 1% In Ns 8.4%) 0.25 ml IDERM ONETIME PRN PRN Reason: Prior to IV Start Stop: 03/17/19 18:00 Last Admin: 03/17/19 09:47 Dose: 0.25 ml Sodium Chloride (Saline Flush) 10 ml FLUSH ASDIRECTED PRN PRN Reason: Keep Vein Open Stop: 03/17/19 18:00 Discontinued Medications Bupivacaine HCl (Marcaine 0.5%) Confirm Administered Dose 30 ml .ROUTE .STK-MED ONE Stop: 03/17/19 09:40 Cefazolin Sodium (Ancef) Confirm Administered Dose 2 gm .ROUTE .STK-MED ONE Stop: 03/17/19 09:36 Dexamethasone (Dexamethasone) Confirm Administered Dose 20 mg .ROUTE .STK-MED ONE Stop: 03/17/19 09:30 Fentanyl (Sublimaze) Confirm Administered Dose 250 mcg .ROUTE .STK-MED ONE Stop: 03/17/19 09:29 Lidocaine HCl (Xylocaine-Mpf 1%) Confirm Administered Dose 4 mls @ as directed .ROUTE .STK-MED ONE Stop: 03/17/19 09:30 Ketorolac Tromethamine (Toradol) Confirm Administered Dose 30 mg .ROUTE .STK- MED ONE Stop: 03/17/19 09:30 Midazolam HCl (Versed 1 Mg/Ml) Confirm Administered Dose 2 mg .ROUTE .STK-MED ONE Stop: 03/17/19 09:29 Ondansetron HCl (Zofran) Confirm Administered Dose 4 mg .ROUTE .STK-MED ONE Stop: 03/17/19 09:29 Propofol (Diprivan 20 Ml) Confirm Administered Dose 200 mg .ROUTE .STK-MED ONE Stop: 03/17/19 09:29 Rocuronium [place] (Zemuron) Confirm Administered Dose 100 mg .ROUTE .STK-MED ONE Stop: 03/17/19 09:30
[2019-03-17] MEDS ORDERED: Lactated Ringers 1,000 ML ONE (11:02)
[2019-03-17] MEDS ORDERED: HYDROmorphone 0.5 MG/0.5 ML Syringe ONE (11:06)
[2019-03-17] MEDS: Bupivacaine 0.5% 30 ML SDV ONE ×2 (11:07→11:48)
[2019-03-17] MEDS ORDERED: fentaNYL 100 MCG/2 ML SDV ONE ×2 (11:35→12:11)
[2019-03-17] MEDS ORDERED: HYDROmorphone 0.5 MG/0.5 ML Syringe IVPUSH PRN (12:51)
[2019-03-17] MEDS ORDERED: fentaNYL 100 MCG/2 ML SDV IVPUSH PRN (12:51)
--- NOTE | 2019-03-17 12:52 | PCM.POSTAN ---
POST ANESTHESIA ASSESSMENT - MENTAL STATUS Mental Status: Alert, Oriented - VITAL SIGNS Vital Signs: Last Vital Signs Temp 37.1 C 03/17/19 09:30 Pulse 69 03/17/19 09:30 Resp 16 03/17/19 09:30 BP 99/62 03/17/19 09:30 Pulse Ox 100 03/17/19 09:30 - RESPIRATORY Respiratory Status: Respiratory Rate WNL, Airway Patent, O2 Saturation Stable - CARDIOVASCULAR CV Status: Pulse Rate WNL, Blood Pressure Stable - GASTROINTESTINAL GI Status: No Symptoms - PAIN Pain Score: 0 - POST OP HYDRATION Hydration Status: Adequate & Stable - OBSERVATIONS Free Text/Narrative:: no anesthesia complications noted
[2019-03-17] MEDS ORDERED: Ondansetron 4 MG/2 ML SDV IVPUSH PRN (13:07)
[2019-03-17] MEDS ORDERED: Acetaminophen/oxyCODONE 325-5 MG Tab PO PRN (13:07)
--- NOTE | 2019-03-17 13:16 | PCM.OPNOTE ---
- General Post-Op/Procedure Note Date of Surgery/Procedure: 03/17/19 Operative Procedure(s): Laparoscopy, left ovarian cystectomy (removal of 5 cystic teratomas) Findings: Right ovary was surgically absent as was right fallopian tube uterus looked normal. Anterior posterior cul-de-sac unremarkable to exception of some surgical scarring secondary to previous . Gallbladder and liver edge unremarkable. Left ovary is consistent with findings on ultrasound. Multiple cysts present within it. All 5 cysts removed compatible with cystic teratomas. 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 Complications: None Condition: Good Free Text/Narrative:: Surgery duration: 80 minutes Procedure: The patient was taken to the operating room and placed in supine position on the operative table. She had sequential compression stockings in place for DVT prophylaxis and had been given 2 g of Ancef IV for infection prophylaxis. She was administered general endotracheal anesthesia. After administration of anesthesia the patient was placed in dorsal lithotomy position and prepped and draped in usual fashion. An indwelling bladder catheter was placed as was a uterine manipulator. It should be noted the uterus sounded to 8 cm and was noted to be anterior and mid position. Infraumbilical and left lower quadrant incision sites and suprapubic site were then infiltrated with approximately 3-4 mL of Marcaine 0.5%. 5 mm incision incision at the umbilical and left lower quadrant and a 12 mm in the suprapubic site. s were made in these areas. Verres needle was placed in the infraumbilical incision site and pneumoperitoneum was established was in 3.5 L of CO2. The laparoscopic sleeve was then placed as was the scope. Under direct visualization the suprapubic site was developed with a 5 mm port. Pelvis was evaluated findings as above. Left ovary is found to be enlarged with multiple cysts present. Otoscopic removal of the cysts was then undertaken. 3 of the 5 cysts were removed intact and 2 of them inadvertently ruptured during the course of their removal. Findings consistent with a cystic teratomas. There removed using and sharp dissection including use of the Enseal vessel closure system. The main part of the or ovarian tissue was left intact. Minimal bleeding was encountered. After removal all 5 and the pelvis was generously irrigated and attempted to remove any potential fragments of cyst contents. The remainder of the ovary was enshrouded with Interceed adhesion barrier. At this time the procedure was discontinued. The 12 mm port site in the suprapubic area was closed using the [place]ura Niko closure device and 0 Vicryl suture. Peritoneum was reversed and the port sites were each closed with continuous stitches of 3-0 Monocryl. The incisions were further approximated with Dermabond skin glue. Patient left the operating room in good condition.
[2019-03-17] MEDS ORDERED: Ketorolac 30 MG/ML SDV IVPUSH SCH (15:30)
[2019-03-17] MEDS ORDERED: Ibuprofen 600 MG Tab PO PRN (21:30)
== END 2019-03-17 14:57 | disposition home or self-care (01) ==
LOC: JD.SDS 09:16
PROVIDERS: ATTEND Obstetrics & Gynecology
DX: D27.1 Benign neoplasm of left ovary (principal); G43.909 Migraine, unspecified, not intractable, without status migrainosus; F32.9 Major depressive disorder, single episode, unspecified; Z91.048 Other nonmedicinal substance allergy status; Z90.721 Acquired absence of ovaries, unilateral
CPT/HCPCS: 36415; 58662; 80053; 81001; 81025; 85025; A9270; C1765; J0690; J1100; J1170; J1885; J2001; J2250; J2405; J2704; J3010; J3490; J7120; 00840

== ENCOUNTER 2022-03-11 08:22 | Inpatient (IN) | payer BC ==
[2022-03-11] MEDS ORDERED: Lactated Ringers 1,000 ML IV SCH (09:02)
[2022-03-11] MEDS ORDERED: Sodium Chloride 0.9% 10 ML Syringe FLUSH PRN (09:02)
[2022-03-11] MEDS ORDERED: Sodium Chloride 0.9% 10 ML Syringe FLUSH SCH (09:02)
[2022-03-11] MEDS ORDERED: Oxytocin/Lactated Ringers 10 UNIT/1,000 ML BAG IV SCH ×2 (09:02→11:01)
[2022-03-11] MEDS ORDERED: ceFAZolin 2 GM in Sodium Chloride 0.9% 50 ML IV ONE (09:02)
[2022-03-11] MEDS ORDERED: Metoclopramide 10 MG/2 ML SDV IVPUSH ONE (09:02)
[2022-03-11] MEDS ORDERED: Lactated Ringers 1,000 ML ONE ×3 (09:05→10:09)
[2022-03-11] MEDS ORDERED: Bupivacaine 0.5% 30 ML SDV ONE (09:21)
[2022-03-11] MEDS ORDERED: Citric Acid/Sodium Citrate Solution 30 ML Cup PO ONE (09:30)
[2022-03-11] MEDS ORDERED: fentaNYL 100 MCG/2 ML SDV ONE (09:33)
[2022-03-11] MEDS ORDERED: Morphine PF 10 MG/10 ML SDV ONE (09:33)
[2022-03-11] MEDS ORDERED: ceFAZolin 2 GM Vial ONE (09:35)
[2022-03-11] MEDS ORDERED: fentaNYL 100 MCG/2 ML SDV IVPUSH PRN (09:38)
[2022-03-11] MEDS ORDERED: diphenhydrAMINE 50 MG/ML SDV IVPUSH PRN ×2 (09:38→11:01)
[2022-03-11] MEDS ORDERED: Ondansetron 4 MG/2 ML SDV IVPUSH PRN (09:38)
[2022-03-11] MEDS ORDERED: Oxytocin 10 Units/1 ML SDV ONE ×2 (09:40→10:24)
[2022-03-11] MEDS ORDERED: Ondansetron 4 MG/2 ML SDV ONE (09:40)
[2022-03-11] MEDS ORDERED: Phenylephrine HCl In 0.9% NaCl 1 MG/10 ML Vial ONE ×2 (09:57→10:16)
[2022-03-11] MEDS ORDERED: Ketorolac 30 MG/ML SDV ONE (10:40)
[2022-03-11] MEDS ORDERED: Dextrose 5%-Lactated Ringers 1,000 ML IV SCH (11:01)
[2022-03-11] MEDS ORDERED: Magnesium Hydroxide 400 MG/5 ML Susp 30 ML Cup PO PRN (11:01)
[2022-03-11] MEDS ORDERED: ePHEDrine 50 MG/ML SDV IVPUSH PRN (11:01)
[2022-03-11] MEDS ORDERED: Naloxone 0.4 MG/ML SDV IVPUSH PRN (11:01)
[2022-03-11] MEDS ORDERED: Acetaminophen/oxyCODONE 325-5 MG Tab PO PRN (11:01)
[2022-03-11] MEDS: Simethicone 80 MG Tab.Chew PO SCH ×3 (12:01→22:20)
[2022-03-11] MEDS: Acetaminophen/oxyCODONE 325-5 MG Tab PO PRN (14:20)
[2022-03-11] MEDS: Ketorolac 30 MG/ML SDV IVPUSH SCH ×2 (16:21→22:20)
[2022-03-12] MEDS: Acetaminophen/oxyCODONE 325-5 MG Tab PO PRN ×2 (00:24→20:07)
[2022-03-12] MEDS: Docusate Sodium 100 MG Cap PO SCH ×3 (01:32→23:38)
[2022-03-12] MEDS: Ketorolac 30 MG/ML SDV IVPUSH SCH (04:28)
[2022-03-12] MEDS: Simethicone 80 MG Tab.Chew PO SCH ×4 (09:22→20:08)
[2022-03-12] MEDS: Prenatal Multivitamin with Calcium/Folic Acid/Iron Tab PO SCH (09:22)
[2022-03-12] MEDS: Ibuprofen 600 MG Tab PO PRN ×2 (11:15→16:30)
[2022-03-13] MEDS: Acetaminophen/oxyCODONE 325-5 MG Tab PO PRN ×2 (02:10→07:56)
[2022-03-13] MEDS: Ibuprofen 600 MG Tab PO PRN (07:57)
[2022-03-13] MEDS: Simethicone 80 MG Tab.Chew PO SCH (09:03)
[2022-03-13] MEDS: Docusate Sodium 100 MG Cap PO SCH (09:03)
[2022-03-13] MEDS: Prenatal Multivitamin with Calcium/Folic Acid/Iron Tab PO SCH (09:04)
== END 2022-03-13 13:00 | disposition home or self-care (01) | DRG 540 ==
LOC: JD.OBCHECK 08:22 → JD.OB 08:25 → JD.OBCHECK 08:51 → JD.OB 09:02 → OBSVTOIN 10:13
PROVIDERS: ADMIT Obstetrics & Gynecology; ATTEND Obstetrics & Gynecology
PROC: 10D00Z1 Extraction of Products of Conception, Low, Open Approach (ICD-10-PCS; principal; 2022-03-11)
DX: O34.211 Maternal care for low transverse scar from previous cesarean delivery (principal); Z37.0 Single live birth; Z3A.37 37 weeks gestation of pregnancy
CPT/HCPCS: 01961; 36415; 59025; 80053; 82570; 83615; 84156; 85025; 86592; 86850; 86900; 86901; 87653; 94762; A9270-GY; J0690; J1885; J2274; J2405; J2590; J2765; J3010; J3490; J7120; J7121